=== PATIENT | male | born 1945 ===

== ENCOUNTER → 2018-05-05 11:57 | Outpatient (CLI) | payer SELFPAY ==
--- NOTE | 2018-05-05 | DI.RAD.S_ITS ---
PROCEDURE: XR THORACIC SPINE 3V INDICATIONS: PAIN TECHNIQUE: 3 views of the thoracic spine were acquired. COMPARISON: None. FINDINGS: Bones: No fractures or dislocations. No suspicious bony lesions. 12 pairs of ribs are noted, and appear intact where visualized. Mild degenerative endplate changes are noted in lower thoracic spine and visualized portion of upper lumbar spine. Soft tissues: No paravertebral stripe thickening. IMPRESSION: No compression fracture or traumatic spondylolisthesis in thoracic spine. 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 Dictated by: Raimundo Geronimo M.D. on 05/05/2018 at 12:49 Approved by: Raimundo Geronimo M.D. on 05/05/2018 at 12:50
== END ==
PROVIDERS: Visit Provider Chiropractor
DX: M51.34 Other intervertebral disc degeneration, thoracic region (principal)
CPT/HCPCS: 72072